=== PATIENT | male | born 1970 | race Caucasian/White ===

== ENCOUNTER 2025-02-18 08:28 | Emergency (ER) | payer OTHER, SELFPAY ==
[2025-02-18 08:36] VITALS: BP 166/107; PULSE 105; RESP 16; TEMP 36.5; O2SAT 98
--- NOTE | 2025-02-18 08:46 | ED_ITS ---
HPI - URI/Sore Throat General Chief Complaint: Upper Respiratory Infection Stated Complaint: Headache/Nasal Congestion/Ear Problem Time Seen by Provider: 02/18/25 08:46 Source: patient Mode of arrival: ambulatory Limitations: no limitations History of Present Illness HPI Narrative: 54-year-old male presents with complaint of sinus congestion, pressure, postnasal drainage, scratchy throat, bilateral ear pain for 5 days. Afebrile. History of sinus infections. Takes [id number] allergy medication +2 nasal sprays. All systems reviewed and negative except as noted above. Related Data Home Medications ?Medication ?Instructions ?Recorded ?Confirmed ?Last Taken ?Type budesonide-formoterol HFA 80 inhalation 02/18/25 Unkn own History mcg-4.5 mcg/actuation aerosol inhaler (Symbicort) desvenlafaxine succinate 50 mg mg PO 02/18/25 Unknown History tablet,extended release 24 hr losartan 25 mg tablet mg 02/18/25 Unknown History rosuvastatin 20 mg tablet mg 02/18/25 Unknown History valacyclovir 500 mg tablet mg 02/18/25 Unknown Histor y Allergies Allergy/AdvReac Type Severity Reaction Status Date / Time No Known Allergies Allergy Verified 02/18/25 09:02 [facility] Comments At time of signature, agree with nursing past medical, surgical, social and family history. There is no relevant family history pertinent to the presenting complaint. Exam Narrative: GENERAL: This is a well-nourished, well-developed patient, in no apparent distress. HEAD: normocephalic, atraumatic. EYES: PERRL. Sclera clear/white. Vision is grossly intact. EARS: External ears normal, auditory canals clear and without drainage, Fluid bilateral TMs, opaque in color with mild erythema. No perforation bilaterally. Hearing grossly intact. NOSE: External nose normal with Purulent nasal drainage, erythema to bilateral nares. Maxillary sinus tenderness bilaterally. THROAT: Mucous membranes moist, Erythematous, tonsils 2+ bilaterally, purulent postnasal drainage NECK: Neck supple, non-tender without lymphadenopathy, masses or thyromegaly. CARDIOVASCULAR: Regular rate and rhythm without murmurs, gallops, or rubs. RESPIRATORY: Clear to auscultation. Breath sounds equal bilaterally. No wheezes, rales, or rhonchi. SKIN: warm, Dry, intact with no suspicious lesions or rash, good texture and turgor. NEURO: awake, alert, and oriented to person, place and time. There were no obvious focal neurologic abnormalities. EXTREMITIES: No joint tenderness, effusion, or edema noted. Course Course Level of Care: Express Care Visit Vital Signs Vital signs: Vital Signs Temperature 36.5 C 02/18/25 08:36 Pulse Rate 105 H 02/18/25 08:36 Respiratory Rate 16 02/18/25 08:36 Blood Pressure 166/107 H 02/18/25 08:36 Pulse Oximetry 98 02/18/25 08:36 Oxygen Delivery Room Air 02/18/25 08:36 Temperature 36.5 C 02/18/25 08:36 Pulse Rate 105 H 02/18/25 08:36 Respiratory Rate 16 02/18/25 08:36 Blood Pressure 166/107 H 02/18/25 08:36 Pulse Oximetry 98 02/18/25 08:36 Oxygen Delivery Room Air 02/18/25 08:36 reviewed MDM MDM Narrative Medical decision making narrative: will treat for bilateral serous otitis media with antibiotic. Recommend continuing allergy medications to treat sinusitis. Prescribed pseudoephedrine. Patient's blood pressure elevated today. Recommend follow-up with primary care physician in 1 week to recheck blood pressure. May need medication dose change. No Chest pain or shortness of breath. Differential Diagnosis Differential Diagnosis: Differential diagnostic considerations for upper respiratory infection include upper respiratory infection, croup, otitis media, sinusitis, viral infection, bronchitis, influenza, pharyngitis, strep, uvulitis.? Discharge Plan Discharge Clinical Impression: Acute bacterial sinusitis, Acute serous otitis media of both ears Patient Disposition: Home Condition: Stable Instructions: Antibiotic Form, Sinusitis (ED) Additional Instructions: take medications as prescribed. Continue daily [id number] allergy medication And nasal spray. Drink at least 64 oz of water a day. See your doctor if not improving. Patient Language: Slovenian Prescriptions: New amoxicillin-pot clavulanate 875-125 mg tablet 1 tablet PO Q12H 10 Days Qty: 20 0RF pseudoephedrine HCl [12 Hour Decongestant] 120 mg tablet extended release 120 mg PO Q12H PRN (Reason: nasal congestion) Qty: 20 0RF No Action valacyclovir 500 mg tablet losartan 25 mg tablet rosuvastatin 20 mg tablet budesonide-formoterol [Symbicort] 80-4.5 mcg/actuation HFA aerosol inhaler INHALATION desvenlafaxine succinate 50 mg tablet extended release 24 hr PO Follow-up/Referrals: PHYSICIAN NOT ON STAFF,NONSTAFF [Primary Care Provider] Time of Disposition: 09:10
== END 2025-02-18 09:15 | disposition home or self-care (01) ==
PROVIDERS: Emergency Provider Nurse Practitioner Family
DX: J01.90 Acute sinusitis, unspecified (principal); H65.03 Acute serous otitis media, bilateral; I10 Essential (primary) hypertension; E78.00 Pure hypercholesterolemia, unspecified; G47.30 Sleep apnea, unspecified
CPT/HCPCS: 99213; G0463